=== PATIENT | female | born 1965 | race Caucasian/White ===

== ENCOUNTER → 2016-11-03 | Day surgery (SDC) | payer BC ==
[~2016-11-03] MED LIST: CHOLESTEROL MED; EXCEDRIN MIGRA1 EACH PO; LIPITOR40 MG PO; METOPROLOL SUCC25 MG PO; PRILOSEC PO
--- NOTE | ~2016-11-03 | OR ---
Unit #: [id number] #: [id number] Patient: SIMÓN LOWE [id number] [address] [place], [place] [address] [id number] O MR#: [id number] NAME: SIMÓN LOWE. ROOM: Date of Procedure: 11/03/2016 Admission Date: 11/03/2016 Surgeon: Keo Zabala M.D. : 1965 Attending Physician: Keo Zabala M.D. Primary Care Physician: Rose Logan M.D. OPERATIVE REPORT PRIMARY CARE PHYSICIAN Rose Logan M.D. PREOPERATIVE DIAGNOSES Colorectal cancer screening. The patient has family history of colon cancer. PROCEDURE PERFORMED Colonoscopy up to cecum and terminal ileum with excellent preparation and good visualization. POSTOPERATIVE DIAGNOSES Small internal hemorrhoids. Otherwise, normal examination up to cecum and terminal ileum. The quality of the prep was excellent. No polyps or diverticula were seen. RECOMMENDATIONS Repeat colonoscopy in 5 years. SEDATION USED MAC. DESCRIPTION OF PROCEDURE Following detailed explanation of the potential risks and complications of a colonoscopy, namely perforation, bleeding, and complication related to sedation, the patient was brought to GI lab and laid in the left lateral decubitus position. A digital rectal examination was performed, which was normal. Lubricated tip of the Olympus video colonoscope was inserted through the anus and advanced under direct vision. The scope was advanced past rectosigmoid into descending colon. No diverticula were seen in this area. The scope tip was then navigated all the way up to cecum with visualization of the ileocecal valve and the appendiceal orifice. Preparation was excellent with good visualization and photodocumentation was obtained. Last several inches of the terminal ileum were also visualized after intubation of the ileocecal valve and appeared normal. Successive segments of the colonic mucosa were examined upon withdrawal and appeared unremarkable. There being no polyps, mass lesions, AVMs, or diverticula. The patient did not have any angiodysplasias. Small internal hemorrhoids were seen at the anal verge during withdrawal. The scope was then withdrawn. The patient returned to the recovery area. She tolerated the procedure without any postprocedure complications. Unit #: [id number] #: [id number] Patient: SIMÓN LOWE Dictated by... Sania Leavitt TD: 11/03/2016 11:50 JOB #: [id number] OPERATIVE REPORT X Keo Zabala MD X PROCEDURE OPERATIVE NOTE
== END | disposition home or self-care (01) ==
LOC: COPS 09:35
DX: Z12.11 Encounter for screening for malignant neoplasm of colon (principal); Z80.0 Family history of malignant neoplasm of digestive organs; K64.8 Other hemorrhoids
CPT/HCPCS: 84703